=== PATIENT | male | born 1980 | race American Indian/Alaskan Native ===

== ENCOUNTER 2017-07-05 17:28 | Emergency (ER) | payer OTHER ==
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
[2017-07-06 04:20] VITALS: BP 162/86
== END 2017-07-06 04:18 | disposition home or self-care (01) ==
LOC: ED 17:28
DX: M50.30 Other cervical disc degeneration, unspecified cervical region (principal); M54.2 Cervicalgia; M79.1 Myalgia; G44.319 Acute post-traumatic headache, not intractable
CPT/HCPCS: 70450; 72125